=== PATIENT | female | born 1950 | race Caucasian/White ===

== ENCOUNTER → 2018-07-15 | Day surgery (SDC) | payer OTHER ==
[~2018-07-15] MED LIST: ALPR0.254 PO; ASPI-482 PO; BENA40TA3 PO; CITA10TA4 PO; GUAN1TAB PO; IV RINGERS,LACTATED 1000ML 1,000 ML IV SCH; LIDOCAINE 1% PF 2 ML VIAL. ONE; METO-239 PO; PROPOFOL 20 ML IV ONE; SIMV40TA3 PO
[2018-07-15 08:25] VITALS: BP 138/56
== END | disposition home or self-care (01) ==
LOC: ENDOS 06:17
PROVIDERS: ATTEND Internal Medicine Gastroenterology
DX: K57.30 Diverticulosis of large intestine without perforation or abscess without bleeding (principal); K64.0 First degree hemorrhoids; Z80.0 Family history of malignant neoplasm of digestive organs; F41.9 Anxiety disorder, unspecified; I10 Essential (primary) hypertension; E78.00 Pure hypercholesterolemia, unspecified; Z82.3 Family history of stroke; Z83.71 Family history of colonic polyps; Z83.3 Family history of diabetes mellitus; Z82.49 Family history of ischemic heart disease and other diseases of the circulatory system; Z79.899 Other long term (current) drug therapy; Z90.49 Acquired absence of other specified parts of digestive tract; Z90.710 Acquired absence of both cervix and uterus; Z98.890 Other specified postprocedural states
CPT/HCPCS: 45378; J2704